=== PATIENT | male | born 1980 | race Caucasian/White ===

== ENCOUNTER 2022-11-19 17:15 | Emergency (ER) | payer MEDICARE ==
[2022-11-19] MEDS ORDERED: DIPH,PERTUS(ACELL)TETVAC-LF 0.5 ML VIAL IM ONE (18:19)
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
[2022-11-19 18:56] VITALS: TEMP 98.2
[2022-11-19] MEDS ORDERED: HYDROcodone/APAP 5-325MG 1 EACH TAB PO STA (19:11)
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
[2022-11-19 19:58] VITALS: BP 164/100; PULSE 80; RESP 18
== END 2022-11-19 19:57 | disposition home or self-care (01) ==
LOC: EC 17:15
DX: S41.042A Puncture wound with foreign body of left shoulder, initial encounter (principal); I10 Essential (primary) hypertension; F17.200 Nicotine dependence, unspecified, uncomplicated; F12.90 Cannabis use, unspecified, uncomplicated; Z23 Encounter for immunization; W34.00XA Accidental discharge from unspecified firearms or gun, initial encounter
CPT/HCPCS: 90471; 90715; 99283